=== PATIENT | male | born 1985 | race African-American/Black ===

== ENCOUNTER 2016-11-13 23:01 | Emergency (ER) | payer OTHER ==
[2016-11-13 22:38] LABS: URINE APPEARANCE CLEAR; URINE BILIRUBIN NEG (NEG); URINE BLOOD NEG (NEG); URINE COLOR YELLOW; URINE GLUCOSE NEG (NEG); URINE KETONE TRACE (NEG); URINE LEUKOCYTE ESTERASE NEG (NEG); URINE NITRATE NEG (NEG); URINE PH 6.5 (5-8); URINE PROTEIN NEG (NEG); URINE SPECIFIC GRAVITY 1.034 (1.003-1.035)
[2016-11-13 22:42] LABS: CULTURE INDICATED? NO
[~2016-11-13 23:01] MED LIST: TOBREX5 ML OP; ZADITOR5 M1 OP
[2016-11-16 16:46] LABS: CHLAMYDIA TRACH Not Detected (Not Detected); N GONOR Not Detected (Not Detected)
== END 2016-11-13 23:30 | disposition home or self-care (01) ==
LOC: CFTX 23:01
PROVIDERS: Nurse Practitioner Family
DX: Z20.2 Contact with and (suspected) exposure to infections with a predominantly sexual mode of transmission (principal); F17.200 Nicotine dependence, unspecified, uncomplicated
CPT/HCPCS: 81003; 87491; 87591; 99283